=== PATIENT | female | born 1995 | race American Indian/Alaskan Native ===

== ENCOUNTER 2019-06-07 04:13 | Emergency (ER) | payer BC ==
[2019-06-07] MEDS ORDERED: ORAPRED PO ONE (04:37)
[2019-06-07] MEDS ORDERED: ZOFRAN ODT PO ONE (04:37)
[2019-06-07] MEDS ORDERED: MOTRIN PO ONE (04:37)
[2019-06-07] MEDS ORDERED: BICILLIN L-A IM ONE (04:37)
[2019-06-07] MEDS ORDERED: LIDOCAINE VISCOUS 2% PO ONE (04:39)
--- NOTE | 2019-06-07 04:42 | Emergency Department Report ---
ED ENT HPI - General Chief complaint: Sore Throat Stated complaint: HEADACHE Time Seen by Provider: 06/07/19 04:31 Source: patient Mode of arrival: Ambulatory Limitations: No Limitations - History of Present Illness Initial comments: 23 year old -[place] female presents to the emergency room for 2 day history of headache and sore throat. Patient reports that the she's having pain with swallowing. She reports a fever yesterday. Patient reports that she is taken TheraFlu which did not has helped. Patient has an allergy to contrast dye. She has no past medical history takes no medications on a daily basis. complaint: sore throat Onset/Timin -: days(s) Location: throat Severity: severe Severity scale (0 -10): 8 Quality: stabbing, sharp Consistency: constant Improves with: none Worsens with: swallowing Associated Symptoms: fever, pain with swallowing, sore throat - Related Data Previous Rx's Medication Instructions Recorded Last Taken Type Ibuprofen [Motrin 600 MG tab] 600 mg PO Q8H PRN #21 tablet 06/07/19 Unknown Rx Allergies Allergy/AdvReac Type Severity Reaction Status Date / Time contrast dye Allergy Intermediate Anaphylaxis Uncoded 06/07/19 04:37 ED Dental HPI - General Chief complaint: Sore Throat Stated complaint: HEADACHE Time Seen by Provider: 06/07/19 04:31 Source: patient Mode of arrival: Ambulatory Limitations: No Limitations - Related Data Previous Rx's Medication Instructions Recorded Last Taken Type Ibuprofen [Motrin 600 MG tab] 600 mg PO Q8H PRN #21 tablet 06/07/19 Unknown Rx Allergies Allergy/AdvReac Type Severity Reaction Status Date / Time contrast dye Allergy Intermediate Anaphylaxis Uncoded 06/07/19 04:37 ED Review of Systems ROS: Stated complaint: HEADACHE Other details as noted in HPI Comment: All other systems reviewed and negative Constitutional: fever ENT: throat pain Neurological: headache ED Past Medical Hx - Past Medical History Previous Medical History?: No - Surgical History Past Surgical History?: No - Social History Smoking Status: Current Every Day Smoker Substance Use Type: Marijuana - Medications Home Medications: Home Medications Medication Instructions Recorded Confirmed Last Taken Type Ibuprofen [Motrin 600 MG tab] 600 mg PO Q8H PRN #21 tablet 06/07/19 Unknown Rx ED Physical Exam - General Limitations: No Limitations General appearance: alert, in no apparent distress - Head Head exam: Present: atraumatic, normocephalic - Eye Eye exam: Present: normal appearance - ENT ENT exam: Present: mucous membranes moist - Expanded ENT Exam Expanded Throat exam: Positive: tonsillar erythema, tonsillomegaly. Negative: tonsillar exudate - Neck Neck exam: Present: tenderness, full ROM, lymphadenopathy - Respiratory Respiratory exam: Present: normal lung sounds bilaterally. Absent: respiratory distress - Cardiovascular Cardiovascular Exam: Present: regular rate, normal rhythm. Absent: systolic murmur, diastolic murmur, rubs, gallop - GI/Abdominal GI/Abdominal exam: Present: soft, normal bowel sounds. Absent: distended - Back Exam Back exam: Present: normal inspection - Neurological Exam Neurological exam: Present: alert, oriented X3 - Psychiatric Psychiatric exam: Present: normal affect, normal mood - Skin Skin exam: Present: warm, dry, intact, normal color. Absent: rash ED Course Vital Signs 06/07/19 04:17 Temperature 97.8 F Pulse Rate 89 Respiratory 18 Rate Blood Pressure 138/78 O2 Sat by Pulse 99 Oximetry ED Medical Decision Making - Medical Decision Making 23 year old -[place] female presents to the emergency room for 2 day history of headache and sore throat. Patient reports that the she's having pain with swallowing. She reports a fever yesterday. Patient reports that she is taken TheraFlu which did not has helped. Patient has an allergy to contrast dye. She has no past medical history takes no medications on a daily basis. Patient will be given penicillin 1.2 million units IM, liquid ibuprofen, Levaquin and Orapred and viscous lidocaine. Critical care attestation.: If time is entered above; I have spent that time in minutes in the direct care of this critically ill patient, excluding procedure time. ED Disposition Clinical Impression: Pharyngitis Qualifiers: Pharyngitis/tonsillitis etiology: unspecified etiology Qualified Code(s): J02.9 - Acute pharyngitis, unspecified Disposition: TO HOME OR SELFCARE Is pt being admited?: No Does the pt Need Aspirin: No Condition: Stable Instructions: Pharyngitis (ED) Additional Instructions: Please take ibuprofen as needed for pain. Increase her fluid intake affects her diet as tolerated. Prescriptions: Ibuprofen [Motrin 600 MG tab] 600 mg PO Q8H PRN #21 tablet PRN Reason: Pain Forms: Work/School Release Form(ED)
[2019-06-07] MEDS ORDERED: ZOFRAN ODT ONE (05:01)
[2019-06-07] MEDS ORDERED: TORADOL IV ONE (05:27)
[2019-06-07] MEDS ORDERED: SOLU-Medrol IV ONE (05:27)
[2019-06-07] MEDS ORDERED: REGLAN IV ONE (05:27)
[2019-06-07] MEDS ORDERED: REGLAN ONE (05:30)
[2019-06-07] MEDS ORDERED: TORADOL ONE (05:30)
[2019-06-07] MEDS ORDERED: SOLU-Medrol ONE (05:30)
[2019-06-07 06:15] VITALS: BP 128/72
== END 2019-06-07 06:16 | disposition home or self-care (01) ==
LOC: ED 04:13
DX: J02.9 Acute pharyngitis, unspecified (principal); F17.200 Nicotine dependence, unspecified, uncomplicated; F12.10 Cannabis abuse, uncomplicated; Z91.041 Radiographic dye allergy status
CPT/HCPCS: 96372; 96374; 96375; 99283; J0561; J1885; J2765; J2930; J7510; Q0162